=== PATIENT | male | born 1965 | race Caucasian/White ===

== ENCOUNTER → 2019-11-17 10:09 | Outpatient (BNVA) | payer BC, SELFPAY | PROVIDERS: Family Provider Registered Nurse; Visit Provider Registered Nurse | DX: I10 Essential (primary) hypertension (principal); E78.5 Hyperlipidemia, unspecified | CPT/HCPCS: 80053; 80061; 83721; 85025; G0103 ==

== ENCOUNTER 2020-10-30 13:28 | Outpatient (CLI) | payer BC, SELFPAY ==
--- NOTE | 2020-10-30 13:30 | CT_ITS ---
WS: [id number] CT ABDOMEN AND PELVIS NONCONTRAST HISTORY: R10.9 - Unspecified abdominal pain TECHNIQUE: Imaging performed through the abdomen and pelvis. Coronal and sagittal reformats are submi tted. All CT scans at [facility] use at least one of these dose optimization techniques: automated exposure control; mA and/or kV adjustment per patient size (includes targeted exams where d ose is matched to clinical indication); or iterative reconstruction. DLP: 1737.15 mGy.cm COMPARISON: None available. Lower thorax: There are multiple noncalcified bilateral lower lung field pulmonary nodules. The large st at the LEFT lung base is 8 mm. Heart size is normal. Small hiatal hernia. Liver: Liver is enlarged extending over length of 18 cm with diffuse hepatic steatosis. There are a f ew scattered hepatic granulomatous. No obvious duct dilatation on this unenhanced study. No mass iden tified. Gallbladder: Normal gallbladder. Pancreas: Normal size and attenuation. Normal pancreatic duct. No pancreatitis or mass. Spleen: 11.5 cm in length. Splenic granulomata. Numerous varicosities are noted in the LEFT upper abd omen extending towards the spleen and distal esophagus. Adrenal glands: Normal. No mass. Right kidney: Normal size kidney with no mass or hydronephrosis. Left kidney: Mild perinephric stranding with no obstruction. Aorta: Normal abdominal aorta, no aneurysm or atherosclerosis. No free fluid, intraperitoneal air or significant lymphadenopathy. GI tract: Normal appendix. No GI tract obstruction or diverticulosis. Abdominal wall: Small umbilical hernia contains fat only. Pelvis: No adenopathy or fluid. Urinary bladder is only minimally distended. Mild prostate gland enla rgement with calcification. Osseous structures: Unremarkable. CT/CT abdomen pelvis wo con [id number] IMPRESSION: 1. Acute appendicitis without rupture. 2. Moderate hepatomegaly and hepatic steatosis. 3. Subcentimeter multiple small nodules at the lung bases. The largest measure s 8 mm. These may be postinflammatory but early neoplastic disease not excluded limited. Recommend follow-up chest CT in 3 months. 4. LEFT upper abdomen varices. Notified NIRMAL Florez at 10/30/2020 2:16 PM.
== END 2020-10-30 13:29 | disposition home or self-care (01) ==
PROVIDERS: PCP Registered Nurse; Visit Provider Registered Nurse
DX: R10.9 Unspecified abdominal pain (principal); K37 Unspecified appendicitis; R16.0 Hepatomegaly, not elsewhere classified; K76.0 Fatty (change of) liver, not elsewhere classified; R91.1 Solitary pulmonary nodule
CPT/HCPCS: 74176

== ENCOUNTER 2020-10-30 14:24 | Day surgery (SDC) | payer BC, SELFPAY ==
[2020-10-30] VITALS (8 sets, daily range): BP systolic 121–148; BP diastolic 71–97; PULSE 67–100; RESP 16–18; TEMP 36.2–36.7; O2SAT 97–99; BMI 29.5
--- NOTE | 2020-10-30 15:17 | ECG_ITS ---
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 Measurements Intervals [place] Rate: 66 P: 53 ME: 176 QRS: 28 QRSD: 110 T: 4 QT: 401 QTc: 420 Interpretive Statements SINUS RHYTHM No previous ECG available for comparison Electronically Signed On 10-30-2020 18:24:36 CDT by Waldemar Hartman M.D. [id number]
--- NOTE | 2020-10-30 15:30 | W.ED.ABDPA2 ---
HPI - Abdominal Pain General: Chief Complaint: Abdominal Pain Stated Complaint: AB PAIN Time Seen by Provider: 10/30/20 15:01 History of Present Illness: HPI narrative: 55-year-old male presents emergency room with complaint of abdominal pain that began yesterday. Was generalized and became more periumbilical finally migrated to the right lower quadrant. He is seen as an outpatient and had a CT done which showed acute appendicitis he was referred to the emergency room. MD elicited complaint: abdominal pain Onset (ago): day(s) (1) Pain Consistency: constant Location: RLQ Severity: moderate Quality: stabbing Radiation: none Exacerbating factors: movement Relieving factors: rest Associated Symptoms: Reports anorexia; Denies belching, bloating, change in bowel habits, change in stool character, chills, coffee ground emesis, constipation, GI cramping, diarrhea, dyspepsia, dysuria, excessive flatus, fever(s), heartburn, hematochezia, hematuria, hematemesis, fecal incontinence, loose stools, melena, nausea, poor appetite, syncope and vomiting Review of Systems Const: Denies: fever(s) or chills ENMT: Denies: throat pain, ear or mastoid pain, nasal discharge or nasal congestion Card: Denies: syncope Resp: Denies: dyspnea, productive cough or non-productive cough GI: Denies: nausea, vomiting, hematemesis, coffee ground emesis, heartburn, diarrhea, constipation, bloating, GI cramping, belching, excessive flatus, fecal incontinence, change in bowel habits, change in stool character, hematochezia or melena : Denies: dysuria or hematuria Skin/Breast: Denies: rash or pruritus PFSH ED PFSH: Medical History Essential hypertension Hyperlipidemia Surgical History History of nasal surgery Nasal fracture Social History Quit status (tobacco): has quit using tobacco Year quit tobacco: Around 1999 Former quit date comment: 27-[id number]-adse history prior to quitting Alcohol intake: current Physical Exam Const: COMMON NORMALS: no acute distress GENERAL APPEARANCE: cooperative and comfortable ORIENTATION/CONSCIOUSNESS: Yes awake, Yes oriented to person, Yes oriented to place and Yes oriented to time HENMT: COMMON NORMALS: normocephalic, atraumatic and hearing grossly normal bilaterally HEAD & SCALP: normocephalic and atraumatic Neck/C-Spine: COMMON NORMALS: no JVD Resp: COMMON NORMALS: normal respiratory effort, No retractions, No use of accessory muscles and clear to auscultation bilaterally AUSCULTATION: clear to auscultation bilaterally Cardio: COMMON NORMALS: no JVD, regular rate, regular rhythm and No murmurs present (Cardio) RATE: regular rate RHYTHM: regular rhythm GI: COMMON NORMALS: No hepatosplenomegaly present AUSCULTATION: Yes normoactive bowel sounds PALPATION: Yes Tenderness to palpation present (GI) Details: RLQ, Yes Guarding due to palpation present (GI) in the RLQ and Yes No hepatosplenomegaly present Extremity: COMMON NORMALS: normal to inspection, capillary refill normal, no clubbing, cyanosis or edema, no calf tenderness and no pedal edema Neuro: SENSORIUM/ORIENTATION: Yes oriented to person, Yes oriented to place and Yes oriented to time Skin: COMMON NORMALS: no rashes or lesions noted GENERAL SKIN EXAM: no rashes or lesions noted Course Vital Signs: Vital signs: Vital Signs Temperature 97.4 F L 10/30/20 18:06 Pulse Rate 84 10/30/20 18:30 Respiratory Rate 18 10/30/20 18:30 Blood Pressure 134/86 10/30/20 18:30 Pulse Oximetry 98 10/30/20 18:30 MDM - Abdominal Pain MDM Narrative: Medical decision making narrative: Discussed with Dr. Dangelo who is on-call patient has acute appendicitis Dr. Dangelo will take him to the operating room. Lab Data: Labs: Lab Results 10/30/20 10/30/20 10/30/20 Range/Units 15:09 15:09 16:09 WBC 10.7 H (4.0-10.0) 10^3/ uL RBC 5.21 (4.1-5.3) 10^6/u L Hgb 15.1 (11.7-16.6) g/dL Hct 43.6 (42.0-52.0) % MCV 83.7 (80-94) fL MCH 29.0 (28.0-34.0) pg MCHC 34.6 (30.0-36.0) g/dL RDW 12.4 (12.1-15.1) % Plt Count 277 (130-400) 10^3/c mm MPV 9.3 (7.4-10.4) fL Neut % (Auto) 59.4 % Lymph % (Auto) 29.8 % [place] % (Auto) 8.1 % Eos % (Auto) 2.0 % Baso % (Auto) 0.2 % Neut # (Auto) 6.35 (1.8-7.7) 10^3/u L Lymph # (Auto) 3.2 (0.8-4.8) 10^3/u L [place] # (Auto) 0.9 (0.2-0.9) 10^3/u L Eos # (Auto) 0.2 (0.0-0.8) 10^3/u L Baso # (Auto) 0.0 (0.0-0.1) 10^3/u L Nucleated RBC % (a uto) 0 % Nucleated RBCs # 0.0 /100WBC Sodium 138 (136-145) mmol/L Potassium 3.3 L (3.5-5.1) mmol/L Chloride 98 (98-107) mmol/L Carbon Dioxide 29 (22-29) mmol/L Anion Gap 14.3 (5-19) BUN 20 (6-20) mg/dL Creatinine 1.1 (0.7-1.2) mg/dL GFR Calculation 70.0 L (90-130) mL/min Glucose 93 (65-115) mg/dL Calculated Osmolal ity 288 (285-295) mOsm/k g Calcium 9.2 (8.5-10.5) mg/dL Total Bilirubin 0.6 (0.15-1.2) mg/dL AST 14 (0-40) U/L ALT 25 (0-41) U/L Alkaline Phosphata se 79 (40-130) IU/L Creatine Kinase 44 (39-308) U/L Total Protein 7.3 (6.6-8.7) g/dL Albumin 4.5 (3.5-5.2) g/dL Globulin 2.8 (1.3-4.6) g/dL Lipase 30 (13-60) U/L Urine Color Straw (Yellow) Urine Appearance Clear (CLEAR) Urine pH 5 (5-7) Ur Specific Gravit y 1.015 (1.005-1.030) Urine Protein Neg (Negative) Urine Glucose (UA) Norm (Normal) Urine Ketones Negative (Negative) Urine Blood Trace H (Negative) Urine Nitrate Negative (Negative) Urine Bilirubin Neg (Negative) Urine Urobilinogen Norm (Negative) mg/dL Ur Leukocyte Porsha ase Negative (Negative) Urine RBC Rare (0-2) /hpf Urine WBC None (0-5) /hpf Ur Squamous Epith Cells 0-4 H (0-5) /hpf Amorphous Sediment Not Reportable Urine Bacteria Trace (NONE) /hpf Discharge Plan Discharge Patient Disposition: Admitted As Inpatient Clinical Impression: Acute appendicitis Condition: Stable Discharge Diet: Advance as tolerated Discharge Activity: Limit activity as instructed Coding Level of Care Code ED Nursing Care Partner for Luma pSivey
[2020-10-30 15:40] LABS: Basophils % 0.2 %; Eosinophils # 0.2 10^3/uL (0.0-0.8); Hematocrit 43.6 % (42.0-52.0); Hemoglobin 15.1 g/dL (11.7-16.6); Lymphocytes # 3.2 10^3/uL (0.8-4.8); Lymphocytes % 29.8 %; Mean Corpuscular HGB Conc 34.6 g/dL (30.0-36.0); Mean Corpuscular Volume 83.7 fL (80-94); Mean Platelet Volume 9.3 fL (7.4-10.4); Monocytes # 0.9 10^3/uL (0.2-0.9); Monocytes % 8.1 %; Neutrophils # 6.35 10^3/uL (1.8-7.7); Neutrophils % 59.4 %; Nucleated Red Blood Cells % 0 %; Platelet Count 277 10^3/cmm (130-400); Red Blood Count 5.21 10^6/uL (4.1-5.3); Red Cell Distribution Width 12.4 % (12.1-15.1); White Blood Count 10.7 10^3/uL (4.0-10.0)
[2020-10-30 15:58] LABS: Alanine Aminotransferase 25 U/L (0-41); Albumin Level 4.5 g/dL (3.5-5.2); Alkaline Phosphatase 79 IU/L (40-130); Anion Gap 14.3 (5-19); Aspartate Amino Transferase 14 U/L (0-40); Blood Urea Nitrogen 20 mg/dL (6-20); Calcium 9.2 mg/dL (8.5-10.5); Carbon Dioxide 29 mmol/L (22-29); Chloride 98 mmol/L (98-107); Creatine Phosphokinase 44 U/L (39-308); Globulin 2.8 g/dL (1.3-4.6); Glucose 93 mg/dL (65-115); Lipase 30 U/L (13-60); Osmolality Calculated 288 mOsm/kg (285-295); Potassium 3.3 mmol/L (3.5-5.1); Sodium 138 mmol/L (136-145); Total Bilirubin 0.6 mg/dL (0.15-1.2); Total Protein 7.3 g/dL (6.6-8.7)
[2020-10-30] MEDS: sodium chloride 0.9% 1,000 ML 999 ML IV (16:01)
--- NOTE | 2020-10-30 16:12 | P.HP_ITS ---
Providers/Chief Complaint Admitting Physician: General Surgery Joseph Dangelo MD Primary Care Provider: NIRMAL Florez Chief Complaint: AB PAIN History of Present Illness Bruno Ventura is a 55 year old male who says he developed some generalized abdominal pain yesterday afternoon. He developed some nausea last night but never vomited. He said last night he started noticing the pain was more prominent in the right lower quadrant. He did have some chills but never took his temperature. He has not had any changes in his bowel habits. He awoke today and says initially he thought he was better but still noticed he had quite a bit of tenderness when he would self palpate in the right lower quadrant. He was seen in his primary care physician's office by Efrain Gilliland and a CAT scan was appropriately ordered. This revealed acute appendicitis. The patient says that he had a normal colonoscopy just a couple of years ago. Review of Systems General: Reports: 10 or more systems reviewed and unremarkable except in HPI and below Const: Reports: chills GI: Reports: abdominal pain and nausea; Denies: vomiting or change in bowel habits Medications/Allergies Home Medications Medication Instructions Recorded Confirmed Last Taken Type fluticasone propionate 50 See Rx Instructions .ROUTE 07/04/20 10/30/20 10/30/20 Rx mcg/actuation nasal .COMPLEX #48 g spray,suspension ibuprofen 800 mg tablet See Rx Instructions .ROUTE 10/25/20 10/30/20 Unknown Rx .COMPLEX #120 tab atorvastatin 10 mg PO DAILY@82910/30/20 10/30/20 10/30/20 History chlorthalidone 25 mg PO DAILY@82910/30/20 10/30/20 10/30/20 History diphenhydramine-acetaminophen 1 tab PO Q4H PRN 10/30/20 10/30/20 10/29/20 History [Tylenol PM Extra Strength] lisinopril 30 mg PO DAILY@2200 10/30/20 10/30/20 10/29/20 History dkpwtrcg-ert-HC-lycopen-lutein 1 tab PO DAILY@82910/30/20 10/30/20 10/30/20 History [Centrum Silver Ultra Men's] potassium chloride 20 meq PO DAILY@0830 04/28/21 04/28/21 04/28/21 History zolpidem 10 mg PO DAILY@0830 10/30/20 10/30/20 Unknown History Allergies Allergy/AdvReac Type Severity Reaction Status Date / Time No Known Allergies Allergy Verified 10/30/20 11:14 PFSH Acute PFSH: Medical History (Updated 10/30/20 @ 16:18 by Joseph Dangelo MD) Essential hypertension Hyperlipidemia Surgical History (Updated 10/30/20 @ 16:18 by Joseph Dangelo MD) History of nasal surgery Nasal fracture Social History (Updated 10/30/20 @ 16:18 by Joseph Dangelo MD) Quit status (tobacco): has quit using tobacco Year quit tobacco: Around 1999 Former quit date comment: [id number] history prior to quitting Alcohol intake: current Alcohol use comment: Occasional, drank more heavily in the past Vitals/I&O/Wt Last Vital Signs Temp 98.1 F 10/30/20 14:49 Pulse 77 10/30/20 16:09 Resp 18 10/30/20 14:49 BP 129/78 10/30/20 16:09 Pulse Ox 97 10/30/20 16:09 Weight last 48 hrs Weight 218 lb Physical Exam Narrative: EXAM NARRATIVE: The patient was encountered in his room in the emergency department. He does not appear to be in any distress. The pupils are equal. No carotid bruits are heard. The lungs are clear anteriorly. The heart is regular. The abdomen is mildly obese but is soft. Bowel sounds are present but may be somewhat hypoactive. Rovsing's sign is positive. The patient's maximum point of tenderness is just below McBurney's point in the right lower quadrant. Percussion tenderness in the same area is equivocal. The extremities reveal no edema. Neurologically the patient is grossly intact. Data : 10/30/20 15:09 10/30/20 15:09 CT Abd/Pel: Radiologist's impression: CT abdomen/pelvis 10/30/2020 IMPRESSION: 1. Acute appendicitis without rupture. 2. Moderate hepatomegaly and hepatic steatosis. 3. Subcentimeter multiple small nodules at the lung bases. The largest measures 8 mm. These may be postinflammatory but early neoplastic disease not excluded limited. Recommend follow-up chest CT in 3 months. 4. LEFT upper abdomen varices. A&P Assessment and plan (1) Acute appendicitis: CT reviewed. I agree with the assessment of acute appendicitis. The patient has a slightly dilated appendix with a enhancing wall and mild to moderate fat stranding as the appendix travels inferiorly from the cecum. I discussed appendicitis with the patient in some detail. Both conservative and surgical approaches to management were gone over. Risks of surgery including bleeding, infection, internal organ injury, etc. were all gone over. The patient seems to understand and would like to proceed with an appendectomy today. The patient had a couple cereal bars for breakfast around 8 AM this morning. He only had a little bit of water since then around 10:30 AM. I am going to make arrangements for a laparoscopic or possibly open appendectomy today. Status: Acute Attestations Medical Necessity Statement*: The patient appears to have an uncomplicated appendicitis by CAT scan. He was hoping he could even be discharged at the end of the day today. As result, he will be kept in outpatient status for now. 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
[2020-10-30 16:40] LABS: Add Urine Microscopic? YES; Bilirubin Urine Neg (Negative); Blood Urine Trace (Negative); Glucose Urine UA Norm (Normal); Ketones Urine Negative (Negative); Leukocyte Esterase Urine Negative (Negative); Nitrate Urine Negative (Negative); Protein Urine Neg (Negative); Specific Gravity, Urine 1.015 (1.005-1.030); Urine Appearance Clear (CLEAR); Urine Color Straw (Yellow); Urobilinogen Urine Norm (Negative); pH Urine 5 (5-7)
--- NOTE | 2020-10-30 16:40 | ANES.PREANE2 ---
Pre-Anesthetic Assessment Pre-Anesthetic Assessment: Height/Weight: Height 1.83 m Weight 98.883 kg Temp Pulse Resp BP Pulse Ox 98.1 F 77 18 129/78 97 10/30/20 14:49 10/30/20 16:09 10/30/20 14:49 10/30/20 16:09 10/30/20 16:09 Preop Diagnosis: Appendicitis Proposed Procedure: Operation Date: 10/30/20 16:30 Proposed Procedures p Laparoscopic Appendectomy(Not Applicable) - Joseph Dangelo MD Familial anesthetic complications: None Was Beta Tami taken within 24 hours: N/A Was Clonidine taken within 24 hours: N/A Last intake: NPO > 8 hrs Social: Social History: No alcohol and No tobacco Exam: Pre-Anes Outpt Exam: alert, oriented x 3, clear to auscultation bilaterally and regular rate & rhythm Airway: Cervical ROM: WNL MP: 3 Dentition: Full CV/HEM: CV/HEM: HTN Metabolic: Metabolic: Hyperlipidemia Anesthetic Plan: ASA status: 2 Anesthesia: General Risk of > 500 ml blood loss (7ml/kg in children): No PFSH Anesthesia PFSH: Medical History (Updated 10/30/20 @ 16:18 by Joseph Dangelo MD) Essential hypertension Hyperlipidemia Surgical History (Updated 10/30/20 @ 16:18 by Joseph Dangelo MD) History of nasal surgery Nasal fracture Social History (Updated 10/30/20 @ 16:18 by Joseph Dangelo MD) Quit status (tobacco): has quit using tobacco Year quit tobacco: Around 1999 Former quit date comment: 58-hjlp-dims history prior to quitting Alcohol intake: current Alcohol use comment: Occasional, drank more heavily in the past Data Anesthesia CBC & Chem 7: 10/30/20 15:09 10/30/20 15:09 Other Labs: Laboratory Results - last 48 hr 10/30/20 10/30/20 15:09 15:09 WBC 10.7 H RBC 5.21 Hgb 15.1 Hct 43.6 MCV 83.7 MCH 29.0 MCHC 34.6 RDW 12.4 Plt Count 277 MPV 9.3 Neut % (Auto) 59.4 Lymph % (Auto) 29.8 [place] % (Auto) 8.1 Eos % (Auto) 2.0 Baso % (Auto) 0.2 Neut # (Auto) 6.35 Lymph # (Auto) 3.2 [place] # (Auto) 0.9 Eos # (Auto) 0.2 Baso # (Auto) 0.0 Nucleated RBC % (auto) 0 Nucleated RBCs # 0.0 Sodium 138 Potassium 3.3 L Chloride 98 Carbon Dioxide 29 Anion Gap 14.3 BUN 20 Creatinine 1.1 GFR Calculation 70.0 L Glucose 93 Calculated Osmolality 288 Calcium 9.2 Total Bilirubin 0.6 AST 14 ALT 25 Alkaline Phosphatase 79 Creatine Kinase 44 Total Protein 7.3 Albumin 4.5 Globulin 2.8 Lipase 30 Cardiac Studies: No Data to Display
[2020-10-30 16:41] LABS: Add Urine Culture? No; Bacteria Urine TRACE /hpf; RBC Urine RARE /hpf (0-2); Squamous Epithelial Cell Urine 0-4 /hpf (0-5)
[2020-10-30] MEDS: metroNIDAZOLE IV 500 MG/100 ML PREMIX 100 MG IV (16:58)
--- NOTE | 2020-10-30 17:33 | P.OP_ITS ---
Operative Report Date of procedure: October 30, 2020 Pre-op Diagnosis: Acute appendicitis. Post-op diagnosis: same Procedure Done: Laparoscopic appendectomy. Specimens removed/disposition: Appendix. Surgeon: Joseph Dangelo Anesthesia: General Estimated blood loss (mL): 5 Complications: None. Condition: stable Disposition: PACU Procedure: The patient was brought to the Operating Room and was placed in a supine position on the operating room table. General endotracheal anesthesia was induced. The abdomen was prepped and draped in a sterile fashion. A small vertical incision was carried out in the inferior aspect of the umbilicus. Blunt dissection was carried out down to the fascia, where a small fat-containing umbilical hernia was found. The hernia defect was simply latanya ngated inferiorly for short distance. A stay suture of 0 Vicryl was placed on either side of the midline and the midline fascia was incised. The underlying peritoneum was opened bluntly and the Riri port was placed directly into the peritoneal cavity and was held in place with the inflatable balloon. The peritoneal cavity was insufflated with carbon dioxide. The laparoscope was used to inspect the peritoneal cavity. No gross abnormalities were initially noted. Two 5-millimeter ports were placed in the left lower quadrant under direct vision. The patient was tilted in a Trendelenburg position and slightly to the left side. A laparoscopic [place] was used to elevate the cecum and the appendix was identified. The appendix was dilated and had some injected blood vessels on its surface. In the mid aspect of the appendix there was a small amount inflammatory peel at the junction of the appendix and mesoappendix. The appendix was elevated. The mesoappendix was divided using cautery to maintain hemostasis at the base of the appendix. The base of the appendix appeared healthy and was divided using an endoscopic stapler. The appendix was removed from the peritoneal cavity after being placed in a laparoscopic bag. The right lower quadrant and pelvis were irrigated. The staple line on the cecum was identified and appeared to be in good condition. The Riri port was removed from the umbilical site and the stay sutures of Vicryl were tied to each other at the umbilicus. Some additional ccqcky-mx-hsvci sutures of 0 Vicryl were placed, closing the enlarged hernia fascial defect so that it was airtight. A final round of irrigation was carried out in the right lower quadrant and the pelvis. No ongoing problems were seen. The remaining ports were removed from the abdominal wall as the pneumoperitoneum was evacuated. All skin incisions were closed using inverted interrupted sutures of 4-0 Vicryl. Benzoin and Steri-Strips were placed over the incisions and Band- Aids followed. The patient was taken to the Recovery Room in stable condition postoperatively.
[2020-10-30] MEDS: HYDROcodone-acetaminophen 5-325 mg Tablet 2 TAB PO (18:20)
--- NOTE | 2020-10-30 20:36 | ANE.PACU2 ---
Inpatient post-anesthesia follow up: Airway intact: Yes Vital signs: Temperature 97.4 F Pulse Rate [Monito r] 67 Pulse Rate 84 Respiratory Rate 18 Blood Pressure [Le ft Arm] 121/78 Blood Pressure 134/86 Pulse Oximetry 98 Oxygen Delivery Me thod Room Air Oxygen Flow Rate Fraction of Inspir ed Oxygen Hydration adequate: Yes Nausea and vomiting: No Pain level: 1 Mental status: Baseline
== END 2020-10-30 18:37 | disposition home or self-care (01) ==
LOC: ER 15:48 → OR 16:44
PROVIDERS: Surgery; Emergency Provider Family Medicine; PCP Registered Nurse; Visit Provider Registered Nurse
PROC: 0DTJ4ZZ Resection of Appendix, Percutaneous Endoscopic Approach (ICD-10-PCS; CPT 44970; principal; 2020-10-30 16:30)
DX: K35.80 Unspecified acute appendicitis (principal); I10 Essential (primary) hypertension; E78.5 Hyperlipidemia, unspecified; Z87.891 Personal history of nicotine dependence
CPT/HCPCS: 44970; 12345; 80053; 81000; 81001; 82550; 83690; 85025; 88304; 93005; J0690; J1100; J2405; J2704; J3010; J3490; J7030; S0030

== ENCOUNTER 2021-03-05 15:23 | Outpatient (CLI) | payer BC, SELFPAY ==
--- NOTE | 2021-03-05 15:45 | CT_ITS ---
WS: [id number] CT CHEST TECHNIQUE: Noncontrast CT of the chest with coronal and sagittal reformatted images. CLINICAL INFORMATION: R91.1 - Solitary pulmonary nodule COMPARISON: CT abdomen pelvis October 30, 2020 DLP: 963.[address] scans at [facility] [place] use at least one of these dose optimization techniques: automated e xposure control; mA and/or kV adjustment per patient size (includes targeted exams where dose is matc hed to clinical indication); or iterative reconstruction. FINDINGS: Again seen are several subcentimeter noncalcified pulmonary nodules in both lower lobes unchanged sin ce the prior CT abdomen pelvis. Largest in the right lower lobe measures 7 mm and left lower lobe oren sures 8 mm. A few additional tiny subcentimeter pulmonary nodules in the upper lobes. No acute pulmon jumana infiltrates. No focal pneumonia or pleural fluid. Normal caliber thoracic aorta. No mediastinal o r hilar lymphadenopathy. No axillary lymphadenopathy. Splenic granulomas. Adrenal glands are normal. Small splenule. CT/CT chest wo con [id number] IMPRESSION: 1. Several noncalcified pulmonary nodules in both lower lobes unchanged since the prior CT abdomen pelvis largest measuring 7 to 8 mm. Recommend additional s ix-month follow-up chest CT. 2. No acute pulmonary infiltrates. 3. No mediastinal or hilar lymphadenopathy.
== END 2021-03-05 15:24 | disposition home or self-care (01) ==
PROVIDERS: PCP Registered Nurse; Visit Provider Registered Nurse
DX: R91.8 Other nonspecific abnormal finding of lung field (principal); E78.5 Hyperlipidemia, unspecified; I10 Essential (primary) hypertension
CPT/HCPCS: 71250; 80053; 80061; 85025

== ENCOUNTER → 2022-03-23 11:08 | Outpatient (BNVA) | payer BC, SELFPAY | PROVIDERS: PCP Registered Nurse; Visit Provider Registered Nurse | DX: Z12.5 Encounter for screening for malignant neoplasm of prostate (principal); E78.5 Hyperlipidemia, unspecified; I10 Essential (primary) hypertension | CPT/HCPCS: 80053; 80061; 83721; 85025; G0103 ==

== ENCOUNTER → 2022-10-08 11:02 | Outpatient (BNVA) | payer BC, SELFPAY | PROVIDERS: PCP Registered Nurse; Visit Provider Registered Nurse | DX: I10 Essential (primary) hypertension (principal); E78.5 Hyperlipidemia, unspecified | CPT/HCPCS: 80053; 80061 ==

== ENCOUNTER → 2023-09-06 09:04 | Outpatient (BNVA) | payer BC, SELFPAY | PROVIDERS: PCP Registered Nurse; Visit Provider Registered Nurse | DX: I10 Essential (primary) hypertension (principal); E78.5 Hyperlipidemia, unspecified; E55.9 Vitamin D deficiency, unspecified | CPT/HCPCS: 80053; 80061; 82306; 85025; G0103 ==

== ENCOUNTER → 2024-08-10 14:58 | Outpatient (BNVA) | payer BC, SELFPAY | PROVIDERS: PCP Registered Nurse; Visit Provider Nurse Practitioner Family | DX: J11.1 Influenza due to unidentified influenza virus with other respiratory manifestations (principal) | CPT/HCPCS: 87400 ==

== ENCOUNTER → 2025-03-22 09:16 | Outpatient (BNVA) | payer BC, SELFPAY | PROVIDERS: PCP Registered Nurse; Visit Provider Registered Nurse | DX: Z13.6 Encounter for screening for cardiovascular disorders (principal); Z12.5 Encounter for screening for malignant neoplasm of prostate; Z13.1 Encounter for screening for diabetes mellitus; I10 Essential (primary) hypertension; E55.9 Vitamin D deficiency, unspecified | CPT/HCPCS: 80053; 82306; 83036; 85025; G0103 ==